=== PATIENT | male | born 1960 | race Caucasian/White ===

== ENCOUNTER 2017-09-23 15:36 | Inpatient (IN) ==
[2017-09-23 17:35] LABS: Basophils # 0.2 K/mcL (0.0-0.2); Basophils % 1.3 %; Eosinophils # 0.3 K/mcL (0.0-0.6); Eosinophils % 2.8 %; Hematocrit 43.9 % (37.5-50.1); Hemoglobin 14.5 g/dL (12.9-16.9); Immature Granulocytes % 0.9 % (0-4); Lymphocytes # 2.6 K/mcL (0.6-4.6); Lymphocytes % 23.1 %; Mean Corpuscular Volume 81.6 fL (83.0-100.0); Mean Platelet Volume 10.2 fL (9.4-12.4); Monocytes # 1.3 K/mcL (0.0-1.3); Monocytes % 11.6 %; Neutrophils # 6.9 K/mcL (1.6-8.9); Platelet Count 437 K/mcL (140-400); Red Blood Count 5.38 M/mcL (4.19-5.50); Red Cell Distribution Width 15.9 % (11.5-14.5); Segmented Neutrophils % 60.3 %
[2017-09-23 17:40] LABS: INR 1.2; Prothrombin Time 12.8 Seconds (9.4-12.1)
[2017-09-23 17:42] LABS: Activated Partial Thrombo Time 32.5 Seconds (26.0-36.0)
[2017-09-23 18:14] LABS: Alanine Aminotransferase 13 Units/L (7-52); Albumin/Globulin Ratio 1.2 (1.1-2.2); Alkaline Phosphatase 153 Units/L (34-104); Aspartate Amino Transferase 14 Units/L (13-39); BUN/Creatinine Ratio 11 (6-26); Bilirubin,Total 0.4 mg/dL (0.3-1.0); Blood Urea Nitrogen 11 mg/dL (6-20); Calcium 9.2 mg/dL (8.6-10.3); Carbon Dioxide 19 mEq/L (23-29); Chloride 107 mEq/L (98-107); Globulin 3.4 g/dL (2.4-3.5); Glucose 134 mg/dL (70-105); Osmolality,Calculated 283 (280-300); Potassium 4.2 mEq/L (3.5-5.1); Sodium 136 mEq/L (136-145); Total Protein 7.4 g/dL (6.4-8.9); eGFR For African Americans > 60 (> 60); eGFR For Non-African Americans > 60 (> 60)
--- NOTE | 2017-09-23 20:20 | Emergency Department Note ---
Disposition Clinical Impression: Ischemic finger, Pain in finger of both hands, History of smoking Disposition: Admitted As Inpatient Condition: Good Time of Disposition: 22:12 Extremity Problem HPI - General Chief complaint: ED Extremity Problem,Nontraumatic Stated complaint: "finger pain,cold,blue" sent from rheumatology Time Seen by Provider: 09/23/17 20:02 Source: patient Mode of arrival: ambulatory Limitations: no limitations Nursing Notes Reviewed: Yes Vital Signs Reviewed: Yes - History of Present Illness HPI Narrative: Patient is a 56-year-old male with past medical history of osteoarthritis, RA, hypertension, depression. He also smokes tobacco and marijuana. He presents today due to complaint of discoloration of distal tips of his pointer finger and middle finger of left hand and middle finger of right hand. He also notes pain in these areas. He says that this happened about a month ago and his pinky finger and ring finger on his right hand, the digits turned discolored and blue/peripheral, were painful and then this eventually went away. He denies this ever happening in the past. Denies any other chest pain, shortness of breath, nausea, vomiting, abdominal pain, fevers, dysuria, hematuria, dark urine. Denies any numbness, tingling, weakness. Denies any injuries, any clotting history, is not currently on any blood thinners, does not use any IV drugs and has not injected any medication or drugs into those areas. Pain Scale: 7 - Related Data Home Medications Medication Instructions Recorded Confirmed Atorvastatin Calcium [Lipitor] 20 mg PO DAILY 07/23/16 09/23/17 BuPROPion SR (12 HR) [Wellbutrin 150 mg PO BID 07/23/16 09/23/17 SR] Diclofenac Sodium [Voltaren] 75 mg PO BID 07/23/16 09/23/17 Fluticasone Propionate Nasal 2 spray NS DAILY 07/23/16 09/23/17 [Flonase] Gabapentin [Neurontin] 800 mg PO QID 07/23/16 09/23/17 Leflunomide 20 mg PO DAILY 07/23/16 09/23/17 Loratadine [Allergy Relief] 10 mg PO DAILY 07/23/16 09/23/17 Montelukast [Singulair] 10 mg PO DAILY 07/23/16 09/23/17 Tizanidine HCl 4 mg PO Q8H PRN 07/23/16 09/23/17 Trazodone HCl 300 mg PO HS 07/23/16 09/23/17 NIFEdipine [Nifedipine ER] 30 mg PO DAILY 09/23/17 09/23/17 PARoxetine HCl [Paroxetine HCl] 40 mg PO DAILY 09/23/17 09/23/17 Previous Rx's Medication Instructions Recorded Metoprolol [Lopressor] 12.5 mg PO BID #30 tablet 09/26/17 Omeprazole [PriLOSEC] 40 mg PO DAILY@0630 #30 capsule. 09/26/17 PredniSONE [Deltasone] 60 mg PO DAILY 14 Days #42 tablet 09/26/17 Allergies Allergy/AdvReac Type Severity Reaction Status Date / Time shellfish derived AdvReac Severe Migraine Verified 09/23/17 21:55 ibuprofen AdvReac Heartburn Verified 09/23/17 21:55 All systems ED: reviewed and negative except as stated. Constitutional: Denies: fever Cardiovascular: Denies: chest pain Respiratory: Denies: cough, dyspnea Gastrointestinal: Denies: abdominal pain, nausea, vomiting, diarrhea Genitourinary: Denies: urgency, dysuria, frequency, hematuria Musculoskeletal: Reports: arthralgia, myalgia Integumentary: Reports: lesions Neurological: Denies: headache, weakness, numbness, paresthesias Past Medical History - Past Medical History Attestation: Yes The following information was validated with the patient. Source: patient Medical history: Reports: asthma, hypertension, osteoporosis, RA Psychiatric history: Reports: depression - Social History Smoking Status: Current every day smoker Smokeless Tobacco Status: No Alcohol use: Reports: none Drug use: Reports: marijuana Physical Exam - General Limitations: no limitations General appearance: alert - Head Head exam: atraumatic, normocephalic, normal inspection - Eye Eye exam: Present: normal appearance, PERRL, EOMI - ENT ENT exam: normal exam, normal oropharynx, mucous membranes moist - Neck Neck exam: Present: normal inspection, full ROM, trachea midline - Chest Chest inspection: Present: normal inspection, symmetric chest wall rise - Respiratory Respiratory exam: Present: normal lung sounds bilaterally - Cardiovascular Cardiovascular exam: Present: regular rate, normal rhythm, normal heart sounds - Abdominal Exam Abdominal exam: Present: soft, Non-Tender. Absent: tenderness, distention, guarding, rebound, rigidity - Extremities Exam Extremities exam: Present: full ROM, other (Purple/back discoloration and petechiae of palmar distal tips of point of finger, middle finger on the left hand and middle finger of right hand. Mild tenderness in these areas but preserved sensation to light touch. No evidence of tract napoles, no splinter hemorrhages or osler nodes. Cap refill >3 seconds in those digits, otherwise the rest of the digits are WNL) - Neurological Exam Neurological exam: Present: alert, oriented X3. Absent: motor sensory deficit - Psychiatric Psychiatric exam: Present: normal affect, normal mood - Skin Skin exam: Present: warm, dry, intact, normal color Course Course Narrative: Purple/back discoloration and petechiae of palmar distal tips of point of finger , middle finger on the left hand and middle finger of right hand. Mild tenderness in these areas but preserved sensation to light touch. No evidence of tract napoles, no splinter hemorrhages or osler nodes. Cap refill >3 seconds in those digits, otherwise the rest of the digits are WNL. 20:30 vascular on-call physician, Dr. Nathan, was contacted and spoke with Dr. Babcock about a case, presentation, physical exam. He recommended that the patient be started on a heparin drip, given Plavix, cilostazol, Plavix, nifedipine. He also recommended that we wrap his fingers and Nitropaste. He also requested that we perform Doppler ultrasounds of the fingers and PPG studies. All this has been ordered. This is discussed with the patient and he was agreeable with this plan and then admission after studies return. Patient given [place] for pain control. 21:31 spoke with ultrasound tach. She reported no flow in left hand pointer finger and middle finger with patient had discoloration. There is minimal flow in the right hand middle finger. Nitro paste being placed on digits. Official consult to vascular placed, will see in the morning. Will admit to hospitalist for further care. Vital Signs Temperature 97.7 F 09/23/17 16:11 Pulse Rate 119 09/23/17 16:11 Respiratory Rate 20 09/23/17 16:11 Blood Pressure 148/92 09/23/17 16:11 O2 Sat by Pulse Oximetry 99 09/23/17 16:11 Temperature 98.9 F 09/26/17 08:45 Pulse Rate 80 09/26/17 08:45 Respiratory Rate 16 09/26/17 08:45 Blood Pressure 134/71 09/26/17 08:45 O2 Sat by Pulse Oximetry 97 09/26/17 08:45 Oxygen Delivery Oxygen Delivery Room Air Extremity Problem, [place] - [facility] Narrative Medical decision making narrative: Purple/back discoloration and petechiae of palmar distal tips of point of finger , middle finger on the left hand and middle finger of right hand. Mild tenderness in these areas but preserved sensation to light touch. No evidence of tract napoles, no splinter hemorrhages or osler nodes. Cap refill >3 seconds in those digits, otherwise the rest of the digits are WNL. 20:30 vascular on-call physician, Dr. Nathan, was contacted and spoke with Dr. Babcock about a case, presentation, physical exam. He recommended that the patient be started on a heparin drip, given Plavix, cilostazol, Plavix, nifedipine. He also recommended that we wrap his fingers and Nitropaste. He also requested that we perform Doppler ultrasounds of the fingers and PPG studies. All this has been ordered. This is discussed with the patient and he was agreeable with this plan and then admission after studies return. Patient given [place] for pain control. 21:31 spoke with ultrasound tach. She reported no flow in left hand pointer finger and middle finger with patient had discoloration. There is minimal flow in the right hand middle finger. Nitro paste being placed on digits. Official consult to vascular placed, will see in the morning. Will admit to hospitalist for further care. - Medical Records Medical records reviewed: Yes I reviewed the patient's medical records. - Lab Data Lab results reviewed: Yes I reviewed the patient's lab results. Result diagrams: 09/25/17 03:13 09/25/17 03:13 Lab Results 09/23/17 09/23/17 09/23/17 Range/Units 17:08 17:08 17:08 WBC 11.5 H (4.3-11.1) K/mcL RBC 5.38 (4.19-5.50) M/mcL Hgb 14.5 (12.9-16.9) g/dL Hct 43.9 (37.5-50.1) % MCV 81.6 L (83.0-100.0) fL MCH 27.0 L (28.0-33.3) pg MCHC 33.0 (31.6-35.5) g/dL RDW 15.9 H (11.5-14.5) % Plt Count 437 H (140-400) K/mcL MPV 10.2 (9.4-12.4) fL Immature Gran % 0.9 (0-4) % Seg Neutrophils % 60.3 % Lymphocytes % 23.1 % Monocytes % 11.6 % Eosinophils % 2.8 % Basophils % 1.3 % Neutrophils # 6.9 (1.6-8.9) K/mcL Lymphocytes # 2.6 (0.6-4.6) K/mcL Monocytes # 1.3 (0.0-1.3) K/mcL Eosinophils # 0.3 (0.0-0.6) K/mcL Basophils # 0.2 (0.0-0.2) K/mcL PT 12.8 H (9.4-12.1) Seconds INR 1.2 APTT 32.5 (26.0-36.0) Seconds Sodium 136 (136-145) mEq/L Potassium 4.2 (3.5-5.1) mEq/L Chloride 107 (98-107) mEq/L Carbon Dioxide 19 L (23-29) mEq/L BUN 11 (6-20) mg/dL Creatinine 0.97 (0.70-1.30) mg/dL Est GFR ( Amer) > 60 (> 60) Est GFR (Non-Af Amer) > 60 (> 60) BUN/Creatinine Ratio 11 (6-26) Glucose 134 H (70-105) mg/dL Calculated Osmolality 283 (280-300) Calcium 9.2 (8.6-10.3) mg/dL Total Bilirubin 0.4 (0.3-1.0) mg/dL AST 14 (13-39) Units/L ALT 13 (7-52) Units/L Alkaline Phosphatase 153 H (34-104) Units/L Serum Total Protein 7.4 (6.4-8.9) g/dL Albumin 4.0 (3.5-5.7) g/dL Globulin 3.4 (2.4-3.5) g/dL Albumin/Globulin Ratio 1.2 (1.1-2.2) - Radiology Data Radiology results reviewed: Yes I reviewed the patient's radiology results. Hand X-Ray 09/23/17 16:17 IMPRESSION: Mild degenerative changes of both wrists. Small metallic foreign body within the index finger of the right hand. D/ / Edil Argueta MD / Edil Argueta MD Interpreting Provider: Edil Argueta MD arina - Joellen Situation: Demographics, MOA Background: Presenting Complaint, Relevant PMH, Meds, & Allergies Assessment: Vital Signs, Course and respsone to treatment, Patient/Family Expectation, Pertinant Lab Results Recommendation: Barrier(s) to disposition, Recommendation based on pending studies, treatments, or consults Joellen Report Given to: Dr. Adis Cuenca Repor Time: 22:12 Attestation Statement - Attestation Attestation: I examined this patient and my medical decision-making was reviewed with the Resident Physician. I agree with the documented findings, disposition and treatment plan as described except to the extent set forth below. 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 Discussed case with on-call vascular surgeon. Recommended treatment with nitrates wrapped, hands, heparinization, antiplatelet agents. We will proceed with admission to the ICU after obtaining arterial vascular studies of the upper extremities as well as digits
[2017-09-23] MEDS ORDERED: *HR* HYDROcodone/Acet 5/325 mg TABLET PO ONE (20:24)
[2017-09-23] MEDS ORDERED: *HR* Heparin 5,000 UNIT/ML VIAL IVP PRN (20:27)
[2017-09-23] MEDS ORDERED: *HR* Heparin 5,000 UNIT/ML VIAL IVP ONE (20:27)
[2017-09-23] MEDS ORDERED: NIFEdipine 10 MG CAPSULE PO ONE (20:27)
[2017-09-23] MEDS ORDERED: Nitroglycerin 1 INCH/GM PACKET TP ONE (20:28)
[2017-09-23] MEDS ORDERED: *HR* LORazepam 2 MG/ML VIAL IVP ONE (20:30)
[2017-09-23] MEDS ORDERED: *HR* OxyCODONE/APAP 5/325 TABLET PO ONE (21:15)
[2017-09-23] MEDS: Heparin 25,000 UNIT/500 ML D5W 25,000 UNIT/500 ML BAG IVC SCH (22:52)
--- NOTE | 2017-09-23 23:04 | Vascular/Endovasc Consult Note ---
Date of Encounter: 09/23/17 Time of Encounter: 22:58 Assessment and Plan (1) Rheumatoid arthritis Current Visit: Yes Status: Acute Patient has a long history of rheumatoid arthritis dating back over 10 years. Qualifiers: Rheumatoid arthritis location: hand Rheumatoid factor presence: with rheumatoid factor Laterality: bilateral Qualified Code(s): M05.741 - Rheumatoid arthritis with rheumatoid factor of right hand without organ or systems involvement; M05.742 - Rheumatoid arthritis with rheumatoid factor of left hand without organ or systems involvement; M05.742 - Rheumatoid arthritis with rheumatoid factor of left hand without organ or systems involvement; M05.742 - Rheumatoid arthritis with rheumatoid factor of left hand without organ or systems involvement; M05.742 - Rheumatoid arthritis with rheumatoid factor of left hand without organ or systems involvement (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 As he is undergoing further diagnostic workup through the evening and into tomorrow pulse steroids are indicated. At this point I do not suspect he will require angiography or endovascular intervention. He will be temporarily treated with IV heparin and vasoactive agents overnight in an attempt to try to blunt the vasoconstrictive effect to his digits. (3) Ischemic finger Current Visit: Yes Status: Acute Digital ischemia involving digits in both upper extremities. 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 An echocardiogram will be obtained to rule out the possibility of embolic phenomenon though by my assessment this evening I think this is less likely. (4) History of smoking Current Visit: Yes Status: Chronic Patient is a chronic tobacco abuser and also of marijuana. He has a past history of crack cocaine use. Stopping smoking is a critical part of his long- term management. - History of Present Illness Consult date: 09/23/17 Consult reason: Ischemic fingers Chief complaint: Painful and discolored fingers History of present illness: Mr. Lee is a 56 year old male Seen in the emergency room this evening in bed #12. The patient presents after being seen in the outpatient clinic by Dr. Urbina for right hand and finger pain and discoloration. The patient states that the pain and discoloration of the fingers of both the left and right hand began about one week ago. The color change was a purplish blue which has been persistent and unrelieved. It has been progressive. He has had no obvious alleviating factors. The areas are painful to touch and are painful at rest. He denies any history of recent trauma to the hands or upper extremities. Of note the patient states that about a month ago he had an episode of discoloration involving the fourth and fifth fingers of the left hand similar but not to the same extent as what his existing today. These discolorations improved spontaneously. The patient has been in to see his primary care provider as well as Dr. Maciel and neurology and Dr. Urbina in rheumatology. The patient had been treated with a course of oral prednisone. He states that he has been off the prednisone for the last 3 weeks. The patient has a long history of rheumatoid arthritis. He has been on a number of medications over the course of this diagnosis. This was established approximately 10 years ago at [facility]. The patient has had a number of inflammatory markers obtained over the past few months. The patient's rheumatoid factor has been elevated. The patient does have a history of drug abuse. This includes crack cocaine were he had was a abuser of this medication for a number of years. He denies any recent intravenous drug use. The patient is an avid tobacco smoker and smokes about 1-1/2 packs cigarettes a day and also regularly smokes marijuana. Noninvasive testing with upper extremity segmental waveforms and pressure measurements as well as digital PPG's were obtained this evening and I have personally reviewed this study. They demonstrate abnormalities at the right third and fifth finger with no blood pressure measured at the right third finger and a diminished index at the right fifth finger at 0.7. In the left upper extremity the second and third digits have a 0 measurement. The left fifth finger also has diminished measurement is 0.65. The waveforms are essentially flat line at the left second and third digits. They are diminished at the right third and fifth digits. Past Med Surg Social Fam HX - Past Medical History Medical history: asthma, hypertension, osteoporosis, RA Psychiatric history: depression - Social History Smoking Status: Current every day smoker Smokeless Tobacco Status: No Alcohol use: none Drug use: marijuana Medications and Allergies Atorvastatin Calcium [Lipitor] 20 mg PO DAILY 07/23/16 [History] BuPROPion SR (12 HR) [Wellbutrin SR] 150 mg PO BID 07/23/16 [History] Diclofenac Sodium [Voltaren] 75 mg PO BID 07/23/16 [History] Fluticasone Propionate Nasal [Flonase] 2 spray NS DAILY 07/23/16 [History] Gabapentin [Neurontin] 800 mg PO QID 07/23/16 [History] Leflunomide 20 mg PO DAILY 07/23/16 [History] Loratadine [Allergy Relief] 10 mg PO DAILY 07/23/16 [History] Montelukast [Singulair] 10 mg PO DAILY 07/23/16 [History] Tizanidine HCl 4 mg PO Q8H PRN 07/23/16 [History] Trazodone HCl 300 mg PO HS 07/23/16 [History] NIFEdipine [Nifedipine ER] 30 mg PO DAILY 09/23/17 [History] PARoxetine HCl [Paroxetine HCl] 40 mg PO DAILY 09/23/17 [History] 3 Allergy/AdvReac Type Severity Reaction Status Date / Time shellfish derived AdvReac Severe Migraine Verified 09/23/17 21:55 ibuprofen AdvReac Heartburn Verified 09/23/17 21:55 All Systems Review: The remainder of the systems were reviewed and are negative Exam General: Present: Conversant, Other (The patient is very careful on the placement and movement of his hands and protect them from contact.) HEENT: Present: Atraumatic, Normocephaly, Trachea midline, Other (Patient looks older than his stated age.) Neck: Absent: JVD, Lymphadenopathy, Left Carotid bruit, Right Carotid bruit, Midline deformity, Tracheal deviation, Thyromegaly Cardiac: Present: Reg Rate and Rhythm, Other (Patient has a soft systolic murmur heard best over the aortic position. It does not appear to radiate.). Absent: Irregular Rhythm Lungs: Present: Decreased breath sounds, No Wheeze, Rales, Rhonchi Neuro: Present: Alert and responsive, No focal deficits noted, Cranial nerves grossly intact, Motor nerves grossly intact, Sensory nerves grossly intact Abdomen: Present: Soft Vascular: Present: Normal capillary refill (Capillary refill is essentially normal at the remaining upper extremity digits.), Capillary refill delayed ( Capillary refill is nonexistent involving the left second and third digit and the right third digit.), Pulse, normal (Upper extremity pulses are symmetrical and normal from the radial and axillary and brachial and ulnar areas.), Cyanosis , Edema (Patient has mild to moderate edema of the hands and fingers bilaterally ), Color/Temperature (The patient has a purplish discoloration involving the distal phalanx of the left index and middle finger. He also has similar changes on the distal phalanx of the right middle finger.). Absent: Bruit, Clubbing, Surgical incisions, Amputation(s) Skin: Present: No rashes noted on visualized skin Consult Discharge Plan - Plan Referrals: Korina Jackson CNP [Primary Care Provider] -
--- NOTE | 2017-09-24 02:40 | Internal Med History&Physical ---
<Tim Parks - Last Filed: 09/24/17 03:49> Date of Encounter: 09/24/17 Time of Encounter: 02:38 Internal Medicine - H&P: HPI Chief complaint: Finger discoloration Admitted From: Home Plans for Post Hospital Care: Home History of present illness: Patient is a 56-year-old male. Past medical history of rheumatoid arthritis and cocaine abuse. Current tobacco user. Presented to [facility] with a chief complaint of discoloration of the distal tips of his pointer finger and middle finger of the left hand and middle finger of his right hand. These changes started 1 week ago. Also reported pain in his fingers that is present at both rest and with palpation. Reported that this happened one month prior; happened on his pinky and ring finger on his right hand; digits turned blue, were very painful. This pain eventually went away. Denies having any other symptoms. No clotting history. No blood thinners. Does not use IV drugs. Patient was recently seen in the outpatient setting by rheumatology. Was started on prednisone. Has been off for 3 weeks. Long-standing history of rheumatoid arthritis. Patient was tachycardic on arrival at 119 bpm. Tachypneic at 20 respirations per minute. Hypertensive at 148/92. Purple/back discoloration and petechiae of palmar distal tips of point of finger, middle finger on the left hand and middle finger of right hand. Mild tenderness in these areas but preserved sensation to light touch. No evidence of tract napoles, no splinter hemorrhages or osler nodes. Cap refill >3 seconds in those digits, otherwise the rest of the digits are WNL. Vascular surgeon was consulted. Recommended starting patient on heparin drip, Plavix, silo stays all, nifedipine. Also recommended wrapping the fingers and Nitropaste. Patient has been given [place] for pain control. Significant for an elevated white count at 11.5. PT was elevated at 12.8. In the emergency department, patient was given a one-time dose of cilostazol, Plavix, [place], Ativan, nifedipine, nitroglycerin, and was started on a heparin drip. Echocardiogram has been ordered. Was seen and examined at bedside. Reports feeling pain in his fingers. Also states that he is thirsty. Denies fever, chills, shortness of breath, nausea, or vomiting. No further complaints at this time. Past Med Surg Social Fam HX - Past Medical History Medical history: asthma, hypertension, osteoporosis, RA Psychiatric history: anxiety, depression - Social History Smoking Status: Current every day smoker Packs per day: 1.5 Smokeless Tobacco Status: No Alcohol use: none Drug use: marijuana Internal Medicine - H&P: Meds Atorvastatin Calcium [Lipitor] 20 mg PO DAILY 07/23/16 [History] BuPROPion SR (12 HR) [Wellbutrin SR] 150 mg PO BID 07/23/16 [History] Diclofenac Sodium [Voltaren] 75 mg PO BID 07/23/16 [History] Fluticasone Propionate Nasal [Flonase] 2 spray NS DAILY 07/23/16 [History] Gabapentin [Neurontin] 800 mg PO QID 07/23/16 [History] Leflunomide 20 mg PO DAILY 07/23/16 [History] Loratadine [Allergy Relief] 10 mg PO DAILY 07/23/16 [History] Montelukast [Singulair] 10 mg PO DAILY 07/23/16 [History] Tizanidine HCl 4 mg PO Q8H PRN 07/23/16 [History] Trazodone HCl 300 mg PO HS 07/23/16 [History] NIFEdipine [Nifedipine ER] 30 mg PO DAILY 09/23/17 [History] PARoxetine HCl [Paroxetine HCl] 40 mg PO DAILY 09/23/17 [History] 3 Allergy/AdvReac Type Severity Reaction Status Date / Time shellfish derived AdvReac Severe Migraine Verified 09/23/17 21:55 ibuprofen AdvReac Heartburn Verified 09/23/17 21:55 All Systems PM: A 10-system review of systems was performed and is negative for pertinent findings except as documented above in the HPI. - Constitutional Constitutional: no chills, no fever(s), no night sweats - EENT Eyes: no change in vision, no discharge, no pain, no photophobia Ears: no ear discharge, no ear pain, no tinnitus Nose, mouth and throat: no dysphagia, no nasal discharge, no neck pain, no sore throat - Cardiovascular Cardiovascular ROS IM: no chest pain, no diaphoresis, no dyspnea, no lightheadedness, no palpitations, no syncope - Respiratory Respiratory: no cough, no dyspnea, no wheezing, no excessive phlegm production - Gastrointestinal Gastrointestinal: no abdominal pain, no diarrhea, no hematemesis, no hematochezia, no melena, no nausea, no vomiting - Musculoskeletal Musculoskeletal ROS IM: no numbness, no tingling Additional comments: pain in the digits bilaterally - Integumentary Integumentary IM: no rash, no unusual bruising - Neurological Neurological ROS: no confusion, no convulsions, no focal weakness, no numbness, no tingling, no tremor(s) - Hematologic/Lymphatic Hematologic/Lymphatic: no easy bruising - Constitutional Vitals: Temp Pulse Resp BP Pulse Ox 98.0 F 113 27 162/132 95 09/24/17 01:00 09/24/17 02:00 09/24/17 02:00 09/24/17 02:00 09/24/17 02:00 - Head Head exam: Present: atraumatic, normocephalic - Eye Eye exam: Present: PERRL, conjuntiva pink, sclera anicteric Pupils: Present: PERRL - Neck Neck exam general surgery: Present: supple, trachea midline. Absent: lymphadenopathy - Respiratory Respiratory exam: Present: CTAB. Absent: accessory muscle use, rales, rhonchi, wheezes - Cardiovascular Cardiovascular exam: Present: RRR, +S1, +S2. Absent: diastolic murmur, gallop, rubs, systolic murmur - Extremities Exam Extremities exam: Present: warm, radial pulses palpable and symmetrical. Absent : calf tenderness, cyanotic, pedal edema Additional comments: discolored fingers are currently wrapped - Neurological Exam Neurological exam: Present: CN II-XII intact, oriented X3, no focal deficits. Absent: pronater drift, facial droop, speech deficit - Skin Skin exam: Present: dry, intact Internal Med - H&P Results - Labs CBC & Chem 7: 09/23/17 17:08 09/23/17 17:08 - Assessment and plan (1) Ischemic finger Current Visit: Yes Status: Acute Assessment and plan: Hand x-ray demonstrated the following: - Mild degenerative changes of both wrists. - Small metallic foreign body within the index finger of the right hand. Arterial study performed on 09/23/17 demonstrated the following: - The bilateral large arteries of the arm is/are hemodynamically well maintained. - Bilateral digits at right 3 and 5 and left 2,3 and - 5 demonstrate moderate to severely abnormally diminished flow. 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 - Echo will be obtained to rule out the possibility of embolic phenomenon - [place] for pain control - Cilostazol, nifedipine, plavix (2) Rheumatoid vasculitis Current Visit: Yes Status: Acute Assessment and plan: - Per vascular consult note: Changes in patients fingertips are likely vasculitis origin - Steroids are indicated - Will not likely require angiography or endovascular intervention - Temporarily be treated with IV heparin and vasoactive agents overnight in an attempt to blunt vasoconstrictive effect to digits (3) History of smoking Current Visit: Yes Status: Chronic Assessment and plan: - Patient has a known history of chronic tobacco use - Also uses marijuana - Past history of crack cocaine use - Smoking cessation will be crucial part of long-term management (4) Rheumatoid arthritis Current Visit: Yes Status: Acute Assessment and plan: - Patient has a long history of rheumatoid arthritis dating back over 10 years Qualifiers: Rheumatoid arthritis location: hand Rheumatoid factor presence: with rheumatoid factor Laterality: bilateral Qualified Code(s): M05.741 - Rheumatoid arthritis with rheumatoid factor of right hand without organ or systems involvement; M05.742 - Rheumatoid arthritis with rheumatoid factor of left hand without organ or systems involvement; M05.742 - Rheumatoid arthritis with rheumatoid factor of left hand without organ or systems involvement; M05.742 - Rheumatoid arthritis with rheumatoid factor of left hand without organ or systems involvement; M05.742 - Rheumatoid arthritis with rheumatoid factor of left hand without organ or systems involvement - Time Spent With Patient Total time spent is greater than 50% in coordination of care (as documented) at patient's floor/unit and/or counseling patient: <Khushi Arceo - Last Filed: 09/24/17 07:04> Date of Encounter: 09/24/17 Internal Medicine - H&P: HPI History of present illness: Mr. Lee is a 56 year old male All Systems PM: A 10-system review of systems was performed and is negative for pertinent findings except as documented above in the HPI. - Constitutional Vitals: Temp Pulse Resp BP Pulse Ox 98.1 F 128 24 119/68 96 09/24/17 03:58 09/24/17 06:48 09/24/17 06:48 09/24/17 06:48 09/24/17 06:48 Internal Med - H&P Results - Labs CBC & Chem 7: 09/24/17 05:35 09/24/17 05:35 Labs: Short CBC 09/24/17 Range/Units 05:35 WBC 11.9 H (4.3-11.1) K/mcL Hgb 13.4 (12.9-16.9) g/dL Hct 41.5 (37.5-50.1) % Plt Count 386 (140-400) K/mcL Neutrophils # 7.2 (1.6-8.9) K/mcL BMP 09/24/17 05:35 Sodium 134 L Potassium 3.7 Chloride 105 Carbon Dioxide 21 L BUN 13 Creatinine 0.76 Glucose 120 H Calcium 8.9 - Attending Attestation I have seen and examined this patient independently. I have discussed the with resident physician Dr. Parks regarding the management plan. Agree with the documentation. - Time Spent With Patient Total time spent is greater than 50% in coordination of care (as documented) at patient's floor/unit and/or counseling patient:
[2017-09-24] MEDS ORDERED: Naloxone 0.4 MG/ML INJ IVP PRN (03:38)
[2017-09-24] MEDS ORDERED: 0.9 % Sodium Chloride 1,000 ML IVC SCH (03:45)
[2017-09-24] MEDS: *HR* HYDROcodone/Acet 10/325 mg TABLET PO SCH ×2 (04:11→10:24)
[2017-09-24 05:54] LABS: Basophils # 0.1 K/mcL (0.0-0.2); Basophils % 1.1 %; Eosinophils # 0.5 K/mcL (0.0-0.6); Eosinophils % 4.2 %; Hematocrit 41.5 % (37.5-50.1); Hemoglobin 13.4 g/dL (12.9-16.9); Immature Granulocytes % 1.1 % (0-4); Lymphocytes # 2.6 K/mcL (0.6-4.6); Lymphocytes % 21.8 %; Mean Corpuscular HGB Conc 32.3 g/dL (31.6-35.5); Mean Corpuscular Hemoglobin 26.7 pg (28.0-33.3); Mean Corpuscular Volume 82.7 fL (83.0-100.0); Mean Platelet Volume 10.2 fL (9.4-12.4); Monocytes # 1.4 K/mcL (0.0-1.3); Monocytes % 11.4 %; Neutrophils # 7.2 K/mcL (1.6-8.9); Platelet Count 386 K/mcL (140-400); Red Blood Count 5.02 M/mcL (4.19-5.50); Red Cell Distribution Width 15.7 % (11.5-14.5); Segmented Neutrophils % 60.4 %
[2017-09-24] MEDS: NIFEdipine 10 MG CAPSULE PO SCH ×3 (06:08→18:28)
[2017-09-24 06:11] LABS: BUN/Creatinine Ratio 17 (6-26); Blood Urea Nitrogen 13 mg/dL (6-20); Calcium 8.9 mg/dL (8.6-10.3); Carbon Dioxide 21 mEq/L (23-29); Chloride 105 mEq/L (98-107); Glucose 120 mg/dL (70-105); Osmolality,Calculated 279 (280-300); Potassium 3.7 mEq/L (3.5-5.1); Sodium 134 mEq/L (136-145); eGFR For African Americans > 60 (> 60); eGFR For Non-African Americans > 60 (> 60)
[2017-09-24] MEDS: *HR* Heparin 5,000 UNIT/ML VIAL IVP PRN ×2 (06:13→13:25)
[2017-09-24] MEDS: Gabapentin 400 MG CAPSULE PO SCH ×3 (12:26→20:57)
--- NOTE | 2017-09-24 15:29 | Event Note ---
Date of Encounter: 09/24/17 Time of Encounter: 10:15 56-year-old male with history of rheumatoid arthritis, tobacco and cocaine abuse , was sent from rheumatology office with significant pain and cyanotic fingertips in left second and third fingers and her right third finger. Seen and examined at bedside. Reports significant improvement in his hand pain. Chest-S1, S2 heard. Tachycardic. Lungs are clear to auscultation. Labs showed mild leukocytosis at 11.9. Arterial studies show hemodynamically well maintained large arteries bilaterally , bilateral digits at right 3 and 5, left 2, 3 and 5 show moderate to severe abnormally diminished flow. Digital ischemia Vasculitis- rheumatoid Vascular surgery recommendations appreciated. Likely does not need endovascular intervention. Recommend anticoagulation with IV heparin drip, Plavix, topical nitroglycerin when necessary, pulse dose steroids; Case discussed with rheumatology, agree with pulse dose steroids-started on Solu -Medrol 500 mg daily for 3 days. Pain control with when necessary oxycodone. Full consult to follow. Patient was noted to be tachycardic this morning, improved with low-dose beta zulay.
--- NOTE | 2017-09-24 15:39 | Vascular/[facility]as Progress Note ---
Date of Encounter: 09/24/17 Time of Encounter: 08:30 - Assessment and plan (1) Rheumatoid arthritis Current Visit: Yes Status: Acute Patient has a long history of rheumatoid arthritis dating back over 10 years. Qualifiers: Rheumatoid arthritis location: hand Rheumatoid factor presence: with rheumatoid factor Laterality: bilateral Qualified Code(s): M05.741 - Rheumatoid arthritis with rheumatoid factor of right hand without organ or systems involvement; M05.742 - Rheumatoid arthritis with rheumatoid factor of left hand without organ or systems involvement; M05.742 - Rheumatoid arthritis with rheumatoid factor of left hand without organ or systems involvement; M05.742 - Rheumatoid arthritis with rheumatoid factor of left hand without organ or systems involvement; M05.742 - Rheumatoid arthritis with rheumatoid factor of left hand without organ or systems involvement (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 As he is undergoing further diagnostic workup through the evening and into tomorrow pulse steroids are indicated. At this point I do not suspect he will require angiography or endovascular intervention. He will be temporarily treated with IV heparin and vasoactive agents overnight in an attempt to try to blunt the vasoconstrictive effect to his digits. (3) Ischemic finger Current Visit: Yes Status: Acute Digital ischemia involving digits in both upper extremities. 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 An echocardiogram will be obtained to rule out the possibility of embolic phenomenon though by my assessment this evening I think this is less likely. (4) History of smoking Current Visit: Yes Status: Chronic Patient is a chronic tobacco abuser and also of marijuana. He has a past history of crack cocaine use. Stopping smoking is a critical part of his long- term management. - Subjective Interval history: The patient has no new complaints. He states his fingers are feeling slightly improved. He is undergoing anticoagulation and vaso dilatory treatment. An echo cardiogram was ordered but it is not been performed at the time of this visit. Vital Signs, Last 4 Hours Pulse Resp 09/24/17 12:20 94 09/24/17 12:17 84 16 - Physical Examination General: Present: Conversant, No Apparent Distress HEENT: Present: Atraumatic Neuro: Present: Alert and responsive, No focal deficits noted Vascular: Present: Pulse, normal, Other (The ischemic fingers are wrapped and covered. The remaining digits are warm and pink and without signs of ischemia.) Skin: Present: No rashes noted on visualized skin Results 09/24/17 05:35 09/24/17 05:35 Lab Results, Last 24 hours 09/24/17 09/24/17 09/24/17 05:35 05:35 05:35 WBC 11.9 H Hgb 13.4 Hct 41.5 Plt Count 386 APTT 39.7 H Sodium 134 L Potassium 3.7 Chloride 105 Carbon Dioxide 21 L BUN 13 Creatinine 0.76 Glucose 120 H Calcium 8.9 09/24/17 12:32 WBC Hgb Hct Plt Count APTT 61.4 H D Sodium Potassium Chloride Carbon Dioxide BUN Creatinine Glucose Calcium - Imaging / Other Tests Echo: pending (Awaiting echocardiogram report) Consult Discharge Plan - Plan Referrals: Korina Jackson, MEJIA [Primary Care Provider] - 10/06/17 1:40 pm Tomasz Watts DO [Partnered Physician] -
[2017-09-24] MEDS: *HR* HYDROcodone/Acet 10/325 mg TABLET PO PRN (15:50)
[2017-09-24] MEDS: Heparin 25,000 UNIT/500 ML D5W 25,000 UNIT/500 ML BAG IVC SCH (16:59)
--- NOTE | 2017-09-24 17:21 | Rheumatology Consult Note ---
Date of Encounter: 09/24/17 Time of Encounter: 17:00 Rheumatology Assess and Plan (1) Ischemic finger Current Visit: Yes Status: Acute This patient has a longstanding history of seropositive, nodular rheumatoid arthritis with new ischemic digits. - Vascular medicine consulted and suspects vasculitis. - TTE pending for signs of embolic source - Blood cultures pending though lacks other signs of infections - He has been started on pulsed dosed steroids and as long as not another source found on cultures or TTE, would continue this for 3 days in total. I would then work on outpatient medication to help more definitively. - Will check complements, UA, quantiferon gold. (2) Rheumatoid arthritis Current Visit: Yes Status: Acute - Active disease, will work on escalating therapy likely with rituximab after discharge Qualifiers: Rheumatoid arthritis location: hand Rheumatoid factor presence: with rheumatoid factor Laterality: bilateral Qualified Code(s): M05.741 - Rheumatoid arthritis with rheumatoid factor of right hand without organ or systems involvement; M05.742 - Rheumatoid arthritis with rheumatoid factor of left hand without organ or systems involvement; M05.742 - Rheumatoid arthritis with rheumatoid factor of left hand without organ or systems involvement; M05.742 - Rheumatoid arthritis with rheumatoid factor of left hand without organ or systems involvement; M05.742 - Rheumatoid arthritis with rheumatoid factor of left hand without organ or systems involvement (3) On prednisone therapy Current Visit: Yes Status: Acute - Recomend gastric prophylaxis while on antiplatelets and corticosteroids. Rheumatology HPI Consult date: 09/24/17 Requesting physician: Latasha Zamora Consult reason: Digital ischemia Chief complaint: Hands hurt History of present illness: Mr. Lee is a 56 year old male with seropositive rheumatoid arthritis, GERD, cocaine use, HLD, osteoarthritis who presents to [facility] with ischemic digits. This patient has a history of rheumatoid arthritis with symptoms dating back to 2007. Initially treated with MTX (stopped due to epistaxis) and managed successfully on leflunomide from [id number]. In 2017, he started having worsening flares and worsening nodulosis requiring the addition of prednisone bursts. In early 09/24, he started having purple color changes to his digits, the 2,3rd digit bilaterally that was associated with moderate to severe pain. His fingers were turning purple but not a triphasic doscoloration. He notes that he was starting to have scabbed lesions overlying rheumatoid nodules as well. He denied fevers, but reports sweating. He denies recent drug use or IV drug use. He was admitted to [facility] and had an UE arterial study in which the bilateral large arteries of the arm were well maintained, left 2,3,5 and righ 3,5 with moderate to severely abnormal diminished flow. He was evaluated by vascular surgery. Heparin, plavix, nifedipine started. Vascular surgeon has suspected vasculitis. Hospitalist has started IV pulsed steroids. Past Med Surg Social Fam HX - Past Medical History Medical history: asthma, hypertension, osteoporosis, RA Psychiatric history: anxiety, depression - Social History Smoking Status: Current every day smoker Packs per day: 1.5 Smokeless Tobacco Status: No Alcohol use: none Drug use: marijuana Medications and Allergies Atorvastatin Calcium [Lipitor] 20 mg PO DAILY 07/23/16 [History] BuPROPion SR (12 HR) [Wellbutrin SR] 150 mg PO BID 07/23/16 [History] Diclofenac Sodium [Voltaren] 75 mg PO BID 07/23/16 [History] Fluticasone Propionate Nasal [Flonase] 2 spray NS DAILY 07/23/16 [History] Gabapentin [Neurontin] 800 mg PO QID 07/23/16 [History] Leflunomide 20 mg PO DAILY 07/23/16 [History] Loratadine [Allergy Relief] 10 mg PO DAILY 07/23/16 [History] Montelukast [Singulair] 10 mg PO DAILY 07/23/16 [History] Tizanidine HCl 4 mg PO Q8H PRN 07/23/16 [History] Trazodone HCl 300 mg PO HS 07/23/16 [History] NIFEdipine [Nifedipine ER] 30 mg PO DAILY 09/23/17 [History] PARoxetine HCl [Paroxetine HCl] 40 mg PO DAILY 09/23/17 [History] 3 Allergy/AdvReac Type Severity Reaction Status Date / Time shellfish derived AdvReac Severe Migraine Verified 09/23/17 21:55 ibuprofen AdvReac Heartburn Verified 09/23/17 21:55 All Systems Review: The remainder of the systems were reviewed and are negative Review of Systems: General - no recent weight loss, weight gain, fatigue or fevers Eyes - no redness, loss of vision, dryness/itching/foreign body sensation ENT - no dryness of mouth, oral ulcerations, nasal ulcerations, sore throat Cardiovascular - no chest pain, palpitations, lightheadedness, syncope or arm/ leg claudication Respiratory - no shortness of breath, difficulty breathing at night, pleuritic chest pain and no cough Gastrointestinal - no nausea, vomiting, diarrhea, bloating, black/tarry stools, blood in stools or heartburn Genitourinary - no pain on urination, hematuria, frothy urine or ulcerations. Musculoskeletal - + morning stiffness, + joint swelling, + muscle aches and no inflammatory back pain Integumentary - no easy bruising, rashes, hives, photosensitivity, skin thickening, alopecia. + color changes to digits Neurological - no muscle weakness or paresthesias Hematologic/lymphatic - no tender or swollen glands, history of anemia or blood clots Rheumatology Exam Vital Signs, Last 4 Hours Temp Pulse Resp BP Pulse Ox 09/24/17 16:09 98.2 F 102 18 143/68 95 09/24/17 16:02 98 18 96 09/24/17 15:56 103 09/24/17 15:38 104 16 96 Exam: General - Alert and oriented x 3, no acute distress and appears comfortable HEENT - Conjunctiva clear, no alopecia or hair thinning, no facial rash, no nasal or oral mucosal lesions/ulcerations Heme/Lymph - No cervical or supraclavicular lymph node enlargement or tenderness. No pallor. Heart - S1S2 regular in rate and rhythm without murmurs, clicks or rubs. No peripheral edema. Lungs - Unlabored breathing, clear to auscultation bilaterally without wheezes or crackles; no decrease in chest expansion Abdomen - Soft, nontender, nondistended. Unable to palpate any hepatosplenomegaly Skin - No clubbing, nodules, tophi, psoriasis, erythema, petichiae, malar rash, telangiectasias, sclerodactyly, nail pitting, onycholysis, digital ulcers. Digits of right hand 3 and left 2,3 purple without capillary regill. Neurological - Gait not assessed due to being in bed. muscle strength 5/5 in all four extremities Musculoskeletal - + synovitis to MCPs bilaterally with inability to make a fist. Decreased ROM of hands. Tenderness to digits noted. Rheumatology Results 09/24/17 05:35 09/24/17 05:35 All other labs normal. Consult Discharge Plan - Plan Referrals: Korina Jackson, MEJIA [Primary Care Provider] - 10/06/17 1:40 pm Tomasz Watts, [Partnered Physician] -
[2017-09-24 19:05] LABS: Rheumatoid Factor > 120 IU/mL (Less than 14)
[2017-09-24 19:44] LABS: Activated Partial Thrombo Time 118.8 Seconds (26.0-36.0)
[2017-09-24 19:45] LABS: Heparin anti-factor XA UFH 0.84 IU/mL (0.30-0.70)
[2017-09-24] MEDS: Diclofenac Sodium 75 MG TABLET PO SCH (20:56)
[2017-09-24] MEDS: traZODone 50 MG TABLET PO SCH (20:56)
[2017-09-24] MEDS: BuPROPion SR (12 HR) 150 MG TABLET PO SCH (20:57)
[2017-09-24 21:59] LABS: Hepatitis B Surface Antigen Nonreactive (Nonreactive); Hepatitis C Virus Antibody Nonreactive (Nonreactive)
[2017-09-25] MEDS: NIFEdipine 10 MG CAPSULE PO SCH (00:04)
[2017-09-25] MEDS: *HR* HYDROcodone/Acet 10/325 mg TABLET PO PRN (02:36)
[2017-09-25 02:43] LABS: Bilirubin,Urine Negative (Negative); Blood,Urine Large (Negative); Clarity,Urine Clear (Clear); Color,Urine Yellow (Yellow); Glucose,Urine (UA) Normal (Normal); Ketones,Urine Negative (Negative); Leukocyte Esterase,Urine Negative (Negative); Nitrite,Urine Negative (Negative); PH,Urine 6.5 pH Units (5.0-8.0); Protein,Urine Negative (Neg-Trace); Specific Gravity,Urine 1.011 (1.010-1.025); Urobilinogen,Urine Normal (Normal)
[2017-09-25 02:46] LABS: Bacteria,Urine None Seen per hpf (None-Few); Hyaline Casts,Urine None Seen per lpf (None-Few); Squamous Epithelial Cell,Urine None Seen per lpf (None-Few); WBC,Urine 0-3 per hpf (0-3)
[2017-09-25 03:42] LABS: Basophils % 0.3 %; Hemoglobin 11.9 g/dL (12.9-16.9); Immature Granulocytes % 0.7 % (0-4); Lymphocytes % 16.9 %; Mean Corpuscular HGB Conc 32.2 g/dL (31.6-35.5); Mean Corpuscular Hemoglobin 26.4 pg (28.0-33.3); Mean Corpuscular Volume 82.2 fL (83.0-100.0); Mean Platelet Volume 10.3 fL (9.4-12.4); Monocytes # 0.1 K/mcL (0.0-1.3); Monocytes % 1.2 %; Neutrophils # 4.6 K/mcL (1.6-8.9); Platelet Count 344 K/mcL (140-400); Red Cell Distribution Width 15.3 % (11.5-14.5); Segmented Neutrophils % 80.9 %
[2017-09-25 04:06] LABS: BUN/Creatinine Ratio 18 (6-26); Blood Urea Nitrogen 13 mg/dL (6-20); Calcium 8.8 mg/dL (8.6-10.3); Carbon Dioxide 23 mEq/L (23-29); Chloride 105 mEq/L (98-107); Glucose 155 mg/dL (70-105); Osmolality,Calculated 283 (280-300); Potassium 4.2 mEq/L (3.5-5.1); Sodium 135 mEq/L (136-145); eGFR For African Americans > 60 (> 60); eGFR For Non-African Americans > 60 (> 60)
[2017-09-25] MEDS: Fluticasone Propionate Nasal 50 MCG/SPRAY BOTTLE NS SCH (08:46)
[2017-09-25] MEDS: BuPROPion SR (12 HR) 150 MG TABLET PO SCH ×2 (08:47→21:36)
[2017-09-25] MEDS: NIFEdipine XL (24 HR) 30 MG TAB.ER.24 PO SCH (08:47)
[2017-09-25] MEDS: Diclofenac Sodium 75 MG TABLET PO SCH ×2 (08:48→21:36)
[2017-09-25] MEDS: Gabapentin 400 MG CAPSULE PO SCH ×4 (08:48→21:36)
--- NOTE | 2017-09-25 09:42 | Vascular/Endovas Progress Note ---
Date of Encounter: 09/25/17 Time of Encounter: 08:45 - Assessment and plan (1) Rheumatoid arthritis Current Visit: Yes Status: Acute Patient has a long history of rheumatoid arthritis dating back over 10 years. Qualifiers: Rheumatoid arthritis location: hand Rheumatoid factor presence: with rheumatoid factor Laterality: bilateral Qualified Code(s): M05.741 - Rheumatoid arthritis with rheumatoid factor of right hand without organ or systems involvement; M05.742 - Rheumatoid arthritis with rheumatoid factor of left hand without organ or systems involvement; M05.742 - Rheumatoid arthritis with rheumatoid factor of left hand without organ or systems involvement; M05.742 - Rheumatoid arthritis with rheumatoid factor of left hand without organ or systems involvement; M05.742 - Rheumatoid arthritis with rheumatoid factor of left hand without organ or systems involvement (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 I'm pleased with the patient's status. 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 I reviewed these results with the patient. He will not need further vascular intervention. I will recheck the patient tomorrow and then sign off the case. The anticoagulation may be discontinued tonight. (3) Ischemic finger Current Visit: Yes Status: Acute Digital ischemia involving digits in both upper extremities. 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 An echocardiogram will be obtained to rule out the possibility of embolic phenomenon though by my assessment this evening I think this is less likely. (4) History of smoking Current Visit: Yes Status: Chronic Patient is a chronic tobacco abuser and also of marijuana. He has a past history of crack cocaine use. Stopping smoking is a critical part of his long- term management. - Subjective Interval history: The patient is feeling significantly improved overnight. He noted that about 8: 00 in the evening he had marked improvement with less pain and discomfort. He had received his ulcer steroid at approximately 2 PM yesterday afternoon. The patient notes his appetite has increased. He has no active complaints at this time. The dressings over the fingertips have been removed. Vital Signs, Last 4 Hours Temp Pulse Resp BP Pulse Ox 09/25/17 08:59 100 09/25/17 08:55 95 09/25/17 08:52 105 20 97 09/25/17 07:11 98.6 F 97 18 121/92 94 - Physical Examination General: Present: Conversant, No Apparent Distress HEENT: Present: Atraumatic, Normocephaly Neck: Absent: JVD Cardiac: Present: Reg Rate and Rhythm Vascular: Present: Other (The ischemic changes involving his fingertips are dramatically improved. The brownish discoloration has resolved. He still has areas though less confluent of purplish discoloration. There is no infection present. They are not tender to manipulation. There is no edema present of the fingertips.) Results 09/25/17 03:13 09/25/17 03:13 Lab Results, Last 24 hours 09/24/17 09/24/17 09/25/17 12:32 18:50 03:13 WBC 5.7 D Hgb 11.9 L D Hct 37.0 L Plt Count 344 APTT 61.4 H D 118.8 H* D Sodium Potassium Chloride Carbon Dioxide BUN Creatinine Glucose Calcium 09/25/17 09/25/17 03:13 03:13 WBC Hgb Hct Plt Count APTT 47.8 H D Sodium 135 L Potassium 4.2 Chloride 105 Carbon Dioxide 23 BUN 13 Creatinine 0.73 Glucose 155 H Calcium 8.8 - Imaging / Other Tests Echo: pending (Echocardiogram was performed last night but the results are not available at the time of this dictation.) Consult Discharge Plan - Plan Referrals: Korina Jackson CNP [Primary Care Provider] - 10/06/17 1:40 pm Tomasz Watts DO [Partnered Physician] -
[2017-09-25] MEDS: Heparin 25,000 UNIT/500 ML D5W 25,000 UNIT/500 ML BAG IVC SCH (12:17)
--- NOTE | 2017-09-25 16:56 | Rheumatology Progress Note ---
Date of Encounter: 09/25/17 Time of Encounter: 08:00 Rheumatology Assess and Plan (1) Rheumatoid vasculitis Current Visit: Yes Status: Acute At this time, I would treat this patient as rheumatoid vasculitis. He has aggressive, nodular rheumatoid arthritis. TTE negative for valvular vegetations , blood cultures negative. Arterial studies show decreased arterial flow. - He is on day #2 of a 3-day pulse corticosteroids - After completing pulsed steroids, he should be discharged on prednisone 60 mg po daily - I discussed the risks and benefits of rituximab with him today and consent was obtained and plan is for outpatient infusion. - Will followup with him as outpatient. - I will not be in the hospital tomorrow and will return on Friday. After his pulsed dose tomorrow, I am ok with discharge and will follow-up with him in the clinic. (2) Rheumatoid arthritis Current Visit: Yes Status: Acute - Active disease, will work on escalating therapy likely with rituximab after discharge Qualifiers: Rheumatoid arthritis location: hand Rheumatoid factor presence: with rheumatoid factor Laterality: bilateral Qualified Code(s): M05.741 - Rheumatoid arthritis with rheumatoid factor of right hand without organ or systems involvement; M05.742 - Rheumatoid arthritis with rheumatoid factor of left hand without organ or systems involvement; M05.742 - Rheumatoid arthritis with rheumatoid factor of left hand without organ or systems involvement; M05.742 - Rheumatoid arthritis with rheumatoid factor of left hand without organ or systems involvement; M05.742 - Rheumatoid arthritis with rheumatoid factor of left hand without organ or systems involvement (3) On prednisone therapy Current Visit: Yes Status: Acute - Recomend gastric prophylaxis while on antiplatelets and corticosteroids. - Subjective Interval history: Patient seen and examined. Reports his fingertips are no longer sore, color is improving. He has no fevers, no chest pain and no shortness of breath. Reports the pain and swelling in his hands has also improved. No other complaints and ROS otherwise negative except as noted above. Exam Vital Signs, Last 4 Hours Temp Pulse Resp BP Pulse Ox 09/25/17 16:32 98 09/25/17 16:30 97 09/25/17 16:16 98.0 F 96 16 124/82 93 09/25/17 13:50 102 16 93 Exam: Constitutional - no acute distress, conversant Eyes - Conjunctiva clear and lids without lesions ENT - Oral mucosa moist, no ulcerations noted Neck - Soft, nontender Respiratory - Unlabored breathing, clear to auscultation bilaterally without wheezes and crackles Chest - S1S2 RRR without murmurs or extra heart sounds Lymph - No cervical, no supraclavicular and no occipital lymphadenopathy MSK - Gait not assessed, Mild synovitisMCPs, no synovitis/effusion of the lower extremities. Skin - Color improving on digital fingertips. Psych - Mood normal, affect full, oriented to person place and time. Objective Data 09/25/17 03:13 09/25/17 03:13 Immunology Rheumatoid Factor > 120 IU/mL (Less than 14) H 09/24/17 18:02 All other labs normal. Consult Discharge Plan - Plan Referrals: Korina Jackson CNP [Primary Care Provider] - 10/06/17 1:40 pm Tomasz Watts DO [Partnered Physician] -
--- NOTE | 2017-09-25 17:50 | Internal Med Progress Note ---
Date of Encounter: 09/25/17 Time of Encounter: 09:50 - Assessment and plan (1) Rheumatoid vasculitis Current Visit: Yes Status: Acute Assessment and plan: Appreciate vascular surgery and rheumatology recommendations. Arterial studies show decreased flow in distal small vessel supplying bilateral fingers. No vascular surgery intervention. IV heparin drip to be discontinued tonight. Continue pulsed dose IV steroids, to be completed tomorrow with transition to oral steroids. Continue Plavix and nifedipine. Pain control with when necessary oral oxycodone. Echocardiogram showed no evidence of valvular vegetations. (2) Tobacco abuse Current Visit: Yes Status: Chronic Assessment and plan: Smoking cessation strongly increased, patient verbalized understanding. Declines nicotine replacement therapy at this time. (3) Rheumatoid arthritis Current Visit: Yes Status: Chronic Assessment and plan: Noted to have seropositive nodular rheumatoid arthritis, follows with rheumatology as outpatient, currently on leflunomide, plan for initiation of Rituximab; Qualifiers: Rheumatoid arthritis location: hand Rheumatoid factor presence: with rheumatoid factor Laterality: bilateral Qualified Code(s): M05.741 - Rheumatoid arthritis with rheumatoid factor of right hand without organ or systems involvement; M05.742 - Rheumatoid arthritis with rheumatoid factor of left hand without organ or systems involvement; M05.742 - Rheumatoid arthritis with rheumatoid factor of left hand without organ or systems involvement; M05.742 - Rheumatoid arthritis with rheumatoid factor of left hand without organ or systems involvement; M05.742 - Rheumatoid arthritis with rheumatoid factor of left hand without organ or systems involvement - Time Spent With Patient Total time spent is greater than 50% in coordination of care (as documented) at patient's floor/unit and/or counseling patient: - Subjective Interval history: Reports feeling well. Significantly improved pain and discoloration in fingertips. No chest pain, shortness of breath, nausea or vomiting. - Constitutional Vitals: Temp Pulse Resp BP Pulse Ox 98.0 F 98 16 124/82 97 09/25/17 16:16 09/25/17 16:32 09/25/17 16:16 09/25/17 16:16 09/25/17 16:30 General appearance: Present: A&O X 3, answers questions appropriately - Respiratory Respiratory exam: Present: CTAB. Absent: accessory muscle use, rales, rhonchi, wheezes - Cardiovascular Cardiovascular exam: Present: RRR, +S1, +S2. Absent: diastolic murmur, gallop, rubs, systolic murmur - GI/Abdominal GI/Abdominal exam: Present: normal bowel sounds, soft, no peritoneal signs. Absent: distended, tenderness - Extremities Exam Extremities exam: Present: warm, radial pulses palpable and symmetrical. Absent : calf tenderness, cyanotic, pedal edema Additional comments: Right third and left second and third fingers with distal vascular ulcers and mild cyanosis and ischemia Internal Medicine: Result - Labs CBC & Chem 7: 09/25/17 03:13 09/25/17 03:13 Labs: Short CBC 09/25/17 Range/Units 03:13 WBC 5.7 D (4.3-11.1) K/mcL Hgb 11.9 L D (12.9-16.9) g/dL Hct 37.0 L (37.5-50.1) % Plt Count 344 (140-400) K/mcL Neutrophils # 4.6 (1.6-8.9) K/mcL BMP 09/25/17 03:13 Sodium 135 L Potassium 4.2 Chloride 105 Carbon Dioxide 23 BUN 13 Creatinine 0.73 Glucose 155 H Calcium 8.8 Urine 09/25/17 Range/Units 02:20 Urine Color Yellow (Yellow) Urine Clarity Clear (Clear) Urine pH 6.5 (5.0-8.0) pH Units Ur Specific [place] 1.011 (1.010-1.025) Urine Protein Negative (Neg-Trace) mg/dL Urine Glucose (UA) Normal (Normal) mg/dL - ABG Interpretation ABG results: PT/INR, D-dimer PT 12.8 Seconds (9.4-12.1) H 09/23/17 17:08 - Impressions Impressions Echocardiogram 09/24/17 23:14 Impressions: LVEF 60-65%. Mild left ventricular diastolic dysfunction. Normal right ventricular structure and function. Mild-moderate aortic regurgitation. Unable to estimate RVSP - suboptimal TR signal. Left Ventricular Wall Motion: Rest Echo Findings All wall segments showed normal motion. Findings: Study Quality * Technically sub-optimal due to COPD. ECG Findings * Sinus tachycardia. Left Ventricle * LVEF 60-65%. * Mild left ventricular diastolic dysfunction. * Normal LV wall thickness and chamber size. Right Ventricle * Normal right ventricular structure and function. Left Atrium * Normal left atrial size. Right Atrium * Normal right atrial size. Aortic Valve * Aortic valve not well visualized. * No aortic stenosis. * Mild-moderate aortic regurgitation. Mitral Valve * No mitral regurgitation. * Normal mitral valve structure. * No mitral stenosis. Tricuspid Valve * Normal tricuspid valve structure. * No tricuspid regurgitation. Pulmonic Valve * Pulmonic valve is not well visualized. * No pulmonic stenosis. * No pulmonic regurgitation. Pulmonary Artery * Pulmonary artery not well visualized. Aorta * Normally sized aortic root. Pericardium * There is no pericardial effusion present. Interatrial Septum * Interatrial septum not well evaluated. IVC * The IVC is not well evaluated. Consult Discharge Plan - Plan Referrals: Korina Jackson, MEJIA [Primary Care Provider] - 10/06/17 1:40 pm Tomasz Watts DO [Partnered Physician] -
[2017-09-25] MEDS: traZODone 50 MG TABLET PO SCH (21:35)
[2017-09-26] MEDS ORDERED: *HR* Heparin 5,000 UNIT/ML VIAL SQ SCH (06:00)
[2017-09-26 07:24] VITALS: BP 134/71
[2017-09-26] MEDS: Diclofenac Sodium 75 MG TABLET PO SCH (08:47)
[2017-09-26] MEDS: *HR* HYDROcodone/Acet 10/325 mg TABLET PO PRN (08:47)
[2017-09-26] MEDS: BuPROPion SR (12 HR) 150 MG TABLET PO SCH (08:48)
[2017-09-26] MEDS: Gabapentin 400 MG CAPSULE PO SCH (08:48)
[2017-09-26] MEDS: Fluticasone Propionate Nasal 50 MCG/SPRAY BOTTLE NS SCH (08:48)
[2017-09-26] MEDS: NIFEdipine XL (24 HR) 30 MG TAB.ER.24 PO SCH (08:48)
--- NOTE | 2017-09-26 10:49 | Discharge Summary ---
- NOTES TO OUTPATIENT PROVIDER Notes to Outpatient Provider: Rheumatoid vasculitis, discharged on PO steroids, with Rheumatology f/up Orders not resulted at time of discharge: Pending orders 09/24/17 05:35 Culture,Blood [BC] Routine 09/24/17 18:02 Complement Component 3 Routine Complement Component 4 Routine QuantiFERON-TB Gold In-Tube Routine Date of Encounter: 09/26/17 Time of Encounter: 10:44 - Discharge Diagnosis (1) Rheumatoid vasculitis Priority: Primary Status: Acute (2) Tobacco abuse Priority: Secondary Status: Chronic (3) Rheumatoid arthritis Priority: Secondary Status: Chronic Qualifiers: Rheumatoid arthritis location: hand Rheumatoid factor presence: with rheumatoid factor Laterality: bilateral Qualified Code(s): M05.741 - Rheumatoid arthritis with rheumatoid factor of right hand without organ or systems involvement; M05.742 - Rheumatoid arthritis with rheumatoid factor of left hand without organ or systems involvement; M05.742 - Rheumatoid arthritis with rheumatoid factor of left hand without organ or systems involvement; M05.742 - Rheumatoid arthritis with rheumatoid factor of left hand without organ or systems involvement; M05.742 - Rheumatoid arthritis with rheumatoid factor of left hand without organ or systems involvement Hospital course: Mr. Lee is a 56 year old male with history of tobacco abuse and rheumatoid arthritis, who presented with acute pain and cyanotic discoloration in the tips of left second and third and right second fingers. He was evaluated by vascular surgery in the emergency room, started on anticoagulation with IV heparin drip, Plavix, topical nitroglycerin and continued on home dose of nifedipine. Patient's symptoms significantly improved with this treatment. He was also started on pulse dose of IV steroids, which she received for 3 days. Rheumatology was consulted, agreed with IV steroids and recommended to discharge patient on 60 mg oral prednisone with outpatient follow-up. Plan is to escalate patient's antirheumatic therapy to Rituximab in as an outpatient. Patient is strongly encouraged to consider smoking cessation due to the effects on vasculitis/vascular disease, and he verbalized understanding. TTE showed no e/o- vegetations or valvular abnormality. Discharge discussed with: patient Time spent discussing smoking cessation with patient: 3 to 10 minutes - Time Spent with Patient Total time spent providing and/or coordinating discharge services: Greater than 30 minutes (45 min) - Discharge Medications Prescriptions: Metoprolol [Lopressor] 12.5 mg PO BID #30 tablet Omeprazole [PriLOSEC] 40 mg PO DAILY@0630 #30 capsule. PredniSONE [Deltasone] 60 mg PO DAILY 14 Days #42 tablet Home Medications: Atorvastatin Calcium [Lipitor] 20 mg PO DAILY 07/23/16 [History] BuPROPion SR (12 HR) [Wellbutrin SR] 150 mg PO BID 07/23/16 [History] Diclofenac Sodium [Voltaren] 75 mg PO BID 07/23/16 [History] Fluticasone Propionate Nasal [Flonase] 2 spray NS DAILY 07/23/16 [History] Gabapentin [Neurontin] 800 mg PO QID 07/23/16 [History] Leflunomide 20 mg PO DAILY 07/23/16 [History] Loratadine [Allergy Relief] 10 mg PO DAILY 07/23/16 [History] Montelukast [Singulair] 10 mg PO DAILY 07/23/16 [History] Tizanidine HCl 4 mg PO Q8H PRN 07/23/16 [History] Trazodone HCl 300 mg PO HS 07/23/16 [History] NIFEdipine [Nifedipine ER] 30 mg PO DAILY 09/23/17 [History] PARoxetine HCl [Paroxetine HCl] 40 mg PO DAILY 09/23/17 [History] Metoprolol [Lopressor] 12.5 mg PO BID #30 tablet 09/26/17 [Rx] Omeprazole [PriLOSEC] 40 mg PO DAILY@0630 #30 capsule. 09/26/17 [Rx] PredniSONE [Deltasone] 60 mg PO DAILY 14 Days #42 tablet 09/26/17 [Rx] Allergies/Adverse Reactions: 3 Allergy/AdvReac Type Severity Reaction Status Date / Time shellfish derived AdvReac Severe Migraine Verified 09/23/17 21:55 ibuprofen AdvReac Heartburn Verified 09/23/17 21:55 Date of admission: 09/24/17 00:10 Primary care physician: Korina Jackson CNP Consults: 09/24/17 15:23 Consult to Rheumatology [CONS] Routine Consulting Provider: Tomasz Watts Reason for Consult: Acute vasculitis B/L fingers Call Completed: Yes Discharging clinician: Latasha Zamora Anticipated date of discharge: 09/26/17 - Constitutional Vitals: Temp Pulse Resp BP Pulse Ox 98.9 F 80 16 134/71 97 09/26/17 07:22 09/26/17 07:22 09/26/17 07:22 09/26/17 07:22 09/26/17 07:22 General appearance: Present: A&O X 3, answers questions appropriately - Cardiovascular Cardiovascular exam: Present: RRR, +S1, +S2. Absent: diastolic murmur, gallop, rubs, systolic murmur - Patient Status Disposition: Home, Self-Care Condition: Good Functional capacity at discharge: independent ambulation Overall status at discharge: patient is progressing back to baseline - Discharge Instructions Instructions: Metoprolol (By mouth), Prednisone (By mouth), Omeprazole (By mouth) Follow Up With: Korina Jackson CNP [Primary Care Provider] - 10/06/17 1:40 pm Tomasz Watts DO [Partnered Physician] - 10/08/17 3:15 pm - Diet and Activity Activity: resume usual activities as tolerated Diet: low fat, low cholesterol, low salt diet
[2017-09-27 07:42] LABS: Complement Component 3 116 mg/dL (88-201); Complement Component 4 20 mg/dL (10-40)
[2017-09-29 08:17] LABS: QuantiFERON NIL 0.05 IU/mL; QuantiFERON-TB Gold In-Tube NEGATIVE (Negative)
== END 2017-09-26 12:20 | disposition home or self-care (01) | DRG 346 ==
LOC: EMEROO 15:36 → ICNU 09-24 00:10 → 2NNU 09-24 03:56
PROVIDERS: ADMIT Internal Medicine; ATTEND Internal Medicine